=== PATIENT | female | born 1990 | race African-American/Black ===

== ENCOUNTER 2017-06-21 14:45 | Observation (INO) ==
[2017-06-21] MEDS: LACTATED RINGERS 1,000 ML IV SCH ×2 (15:20→22:48)
[2017-06-21] MEDS ORDERED: PROMETHAZINE 25 MG/1 ML VIAL IM PRN (15:32)
[2017-06-21] MEDS ORDERED: ONDANSETRON 4 MG/2 ML VIAL IV PRN (15:32)
[2017-06-21] MEDS ORDERED: MEPERIDINE 25 MG/1 ML VIAL IV PRN (15:33)
[2017-06-21 16:18] LABS: Apearance,Urine CLOUDY (Clear); Bacteria,Urine Occasional /HPF (Few); Bilirubin,Urine Negative (Negative); Blood, Urine Negative (Negative); Glucose,Urine (UA) Negative (Negative); Ketones,Urine Negative (Negative); Nitrite,Urine Negative (Negative); Protein,Urine Negative; Squamous Epithelial Cell,Urine Occasional /HPF (0-10); Urine Color Yellow (Yellow); Urine Specific Gravity 1.004 (1.001-1.035); Urine Urobilinogen < 2.0 EU/DL (0.2-1.0); WBC,Urine 1 /HPF (0-6)
[2017-06-21 16:30] LABS: Basophils % 0.2 % (0.0-0.8); Eosinophils # 0.2 10*3/uL (0.0-0.87); Eosinophils % 1.3 % (0.00-10.9); Hematocrit 33.3 VOL% (35.7-47.0); Hemoglobin 11.5 GM/DL (12.0-16.0); Immature Granulocytes % 0.4 %; Immature Granulocytes Absolute 0.05 #; Lymphocytes # 2.8 10*3/uL (1.4-4.0); Lymphocytes % 22.4 % (21.3-54.2); Mean Corpuscular HGB Conc 34.5 GM/DL (32-36); Mean Corpuscular Hemoglobin 30 PG (27-34); Mean Platelet Volume 10.1 FL (9.6-12.0); Monocytes # 0.5 10*3/uL (0.11-0.8); Monocytes % 4.4 % (1.7-12.7); Neutrophils # 8.9 10*3/uL (1.4-7.4); Neutrophils % 71.3 % (38.7-73.9); Platelet Count 402 T/CUMM (130-400); Red Blood Count 3.87 MC/CUMM (3.8-5.5); Red Cell Distribution Width 13.2 % (9.3-17.3); White Blood Count 12.4 T/CUMM (4-12)
[2017-06-21 17:01] LABS: Alanine Aminotransferase 14 U/L (13-56); Albumin 2.9 G/DL (3.4-5.0); Alkaline Phosphatase 79 U/L (45-117); Aspartate Amino Transferase 12 U/L (0-37); Bilirubin,Total < 0.39 MG/DL (0.2-1.0); Blood Urea Nitrogen 6 MG/DL (7-18); Calcium 8.4 MG/DL (8.5-10.1); Glucose 74 MG/DL (74-106); Potassium 3.8 MMOL/L (3.5-5.1); Sodium 136 MMOL/L (136-145); Total Protein 6.9 G/DL (6.4-8.3)
[2017-06-22] MEDS: LACTATED RINGERS 1,000 ML IV SCH (06:16)
[2017-06-22 07:38] VITALS: BP 108/55
== END 2017-06-22 10:00 | disposition home or self-care (01) ==
LOC: N.OB
PROVIDERS: ADMIT Obstetrics & Gynecology; ATTEND Obstetrics & Gynecology

== ENCOUNTER 2017-08-16 14:47 | Inpatient (IN) ==
[2017-08-16] MEDS ORDERED: ONDANSETRON 4 MG/2 ML VIAL IV PRN ×2 (15:04→20:51)
[2017-08-16] MEDS: LACTATED RINGERS 1,000 ML IV SCH ×2 (15:34→18:20)
[2017-08-16 16:02] LABS: Basophils % 0.2 % (0.0-0.8); Eosinophils # 0.2 10*3/uL (0.0-0.87); Eosinophils % 1.5 % (0.00-10.9); Hematocrit 30.7 VOL% (35.7-47.0); Hemoglobin 10.3 GM/DL (12.0-16.0); Immature Granulocytes % 0.3 %; Immature Granulocytes Absolute 0.04 #; Lymphocytes # 2.6 10*3/uL (1.4-4.0); Lymphocytes % 20.3 % (21.3-54.2); Mean Corpuscular HGB Conc 33.6 GM/DL (32-36); Mean Corpuscular Hemoglobin 29 PG (27-34); Mean Corpuscular Volume 87.5 FL (87-102); Mean Platelet Volume 10.6 FL (9.6-12.0); Monocytes # 0.7 10*3/uL (0.11-0.8); Monocytes % 5.3 % (1.7-12.7); Neutrophils # 9.2 10*3/uL (1.4-7.4); Neutrophils % 72.4 % (38.7-73.9); Platelet Count 362 T/CUMM (130-400); Red Blood Count 3.51 MC/CUMM (3.8-5.5); Red Cell Distribution Width 13.3 % (9.3-17.3); White Blood Count 12.7 T/CUMM (4-12)
[2017-08-16] MEDS ORDERED: FAMOTIDINE 20 MG/2 ML VIAL IV ONE (16:30)
[2017-08-16] MEDS ORDERED: hydrOXYzine HCL 25 MG/1 ML VIAL IM PRN (16:30)
[2017-08-16] MEDS ORDERED: CITRIC ACID/SODIUM CITRATE 30 ML UDCUP PO ONE (16:30)
[2017-08-16] MEDS ORDERED: ePHEDrine 50 MG/ML AMP IV PRN (16:30)
[2017-08-16] MEDS ORDERED: PROMETHAZINE 25 MG/1 ML VIAL IM ONE (16:30)
[2017-08-16] MEDS ORDERED: ONDANSETRON 4 MG/2 ML VIAL IV ONE (16:30)
[2017-08-16] MEDS ORDERED: diphenhydrAMINE 50 MG/1 ML VIAL IV PRN ×2 (16:30)
[2017-08-16] MEDS ORDERED: fentaNYL 2 MCG/ROPIV 0.2% EPID 150 ML EPIDURAL SCH (16:30)
[2017-08-16] MEDS ORDERED: BUPIVACAINE SPINAL 0.75% 2 ML AMP SPINAL ONE (18:10)
[2017-08-16] MEDS ORDERED: BISACODYL 10 MG SUPP RECTAL PRN (20:51)
[2017-08-16] MEDS ORDERED: DOCUSATE SODIUM 100 MG CAPSULE PO PRN (20:51)
[2017-08-16] MEDS ORDERED: oxyCODONE/ACETAMINOPHEN 5-325 MG TABLET PO PRN (20:51)
[2017-08-16] MEDS ORDERED: MAGNESIUM HYDROXIDE SUSP 30 ML UDCUP PO PRN (20:51)
[2017-08-16] MEDS ORDERED: ACETAMINOPHEN 325 MG TABLET PO PRN (20:51)
[2017-08-16] MEDS ORDERED: BENZOCAINE/MENTHOL LOZENGE 18/BOX PO PRN (20:51)
[2017-08-16] MEDS ORDERED: ONDANSETRON 4 MG/2 ML VIAL ONE (21:49)
[2017-08-16] MEDS ORDERED: PROPOFOL 200 MG/20 ML VIAL IV ONE (21:49)
[2017-08-16] MEDS ORDERED: SEVOFLURANE 1 UNIT/15 MINUTE INH ONE (21:49)
[2017-08-16] MEDS ORDERED: fentaNYL 100 MCG/2 ML VIAL ONE (21:49)
[2017-08-16] MEDS ORDERED: SUCCINYLCHOLINE 200 MG/10 ML VIAL ONE (21:49)
[2017-08-17 11:53] VITALS: BP 127/80
== END 2017-08-17 11:03 | disposition home or self-care (01) | DRG 782 ==
LOC: N.LDOUT 14:47 → N.LD 14:50
PROVIDERS: ADMIT Obstetrics & Gynecology; ATTEND Obstetrics & Gynecology

== ENCOUNTER 2017-10-19 14:48 | Observation (INO) ==
[2017-10-19 16:20] LABS: Apearance,Urine CLEAR (Clear); Bilirubin,Urine Negative (Negative); Blood, Urine Negative (Negative); Glucose,Urine (UA) Negative (Negative); Ketones,Urine Negative (Negative); Nitrite,Urine Negative (Negative); Protein,Urine Negative; RBC,Urine <1 /HPF (0-4); Squamous Epithelial Cell,Urine Occasional /HPF (0-10); Urine Color Yellow (Yellow); Urine Specific Gravity 1.003 (1.001-1.035); Urine Urobilinogen < 2.0 EU/DL (0.2-1.0); WBC,Urine <1 /HPF (0-6)
[2017-10-19] MEDS ORDERED: PROMETHAZINE 25 MG/1 ML VIAL IM PRN (19:02)
[2017-10-19] MEDS ORDERED: MEPERIDINE 50 MG/1 ML VIAL IM PRN (19:02)
[2017-10-19] MEDS ORDERED: LACTATED RINGERS 1,000 ML IV SCH (20:30)
[2017-10-19] MEDS: BETAMETH SODIUM PHOS/ACETATE 30 MG/5 ML VIAL IM SCH (21:20)
[2017-10-19 21:21] LABS: Basophils % 0.2 % (0.0-0.8); Eosinophils # 0.2 10*3/uL (0.0-0.87); Eosinophils % 1.5 % (0.00-10.9); Hematocrit 29.6 VOL% (35.7-47.0); Hemoglobin 10.2 GM/DL (12.0-16.0); Immature Granulocytes % 0.8 %; Lymphocytes # 2.3 10*3/uL (1.4-4.0); Lymphocytes % 17.4 % (21.3-54.2); Mean Corpuscular HGB Conc 34.5 GM/DL (32-36); Mean Corpuscular Hemoglobin 30 PG (27-34); Mean Corpuscular Volume 87.6 FL (87-102); Mean Platelet Volume 10.5 FL (9.6-12.0); Monocytes # 0.7 10*3/uL (0.11-0.8); Monocytes % 5.5 % (1.7-12.7); Neutrophils # 9.7 10*3/uL (1.4-7.4); Neutrophils % 74.6 % (38.7-73.9); Platelet Count 377 T/CUMM (130-400); Red Blood Count 3.38 MC/CUMM (3.8-5.5); Red Cell Distribution Width 13.4 % (9.3-17.3)
[2017-10-19 21:40] LABS: Alanine Aminotransferase 12 U/L (13-56); Albumin 2.4 G/DL (3.4-5.0); Alkaline Phosphatase 108 U/L (45-117); Aspartate Amino Transferase 15 U/L (0-37); Bilirubin,Total < 0.39 MG/DL (0.2-1.0); Blood Urea Nitrogen 6 MG/DL (7-18); Calcium 9.4 MG/DL (8.5-10.1); Glucose 82 MG/DL (74-106); Osmolality,Calculated 273.5 MOS/KG (273-304); Sodium 139 MMOL/L (136-145); Total Protein 7.3 G/DL (6.4-8.3)
[2017-10-20] MEDS: BETAMETH SODIUM PHOS/ACETATE 30 MG/5 ML VIAL IM SCH (12:49)
[2017-10-20 18:17] VITALS: BP 118/56
== END 2017-10-20 13:55 | disposition home or self-care (01) ==
LOC: N.LDOUT 14:48 → N.LD 14:48
PROVIDERS: ADMIT Obstetrics & Gynecology; ATTEND Obstetrics & Gynecology

== ENCOUNTER 2017-12-21 04:50 | Inpatient (IN) ==
[2017-12-21] MEDS ORDERED: ONDANSETRON 4 MG/2 ML VIAL IV PRN ×2 (05:03→09:00)
[2017-12-21] MEDS ORDERED: CITRIC ACID/SODIUM CITRATE 30 ML UDCUP PO ONE (05:03)
[2017-12-21] MEDS ORDERED: FAMOTIDINE 20 MG/2 ML VIAL IV ONE (05:03)
[2017-12-21] MEDS ORDERED: LACTATED RINGERS 1,000 ML IV SCH ×2 (05:30→09:00)
[2017-12-21 05:48] LABS: Basophils % 0.2 % (0.0-0.8); Eosinophils # 0.2 10*3/uL (0.0-0.87); Eosinophils % 1.1 % (0.00-10.9); Hematocrit 33.8 VOL% (35.7-47.0); Hemoglobin 11.6 GM/DL (12.0-16.0); Immature Granulocytes % 0.7 %; Lymphocytes # 2.8 10*3/uL (1.4-4.0); Lymphocytes % 19.8 % (21.3-54.2); Mean Corpuscular HGB Conc 34.3 GM/DL (32-36); Mean Corpuscular Hemoglobin 29 PG (27-34); Mean Corpuscular Volume 85.6 FL (87-102); Mean Platelet Volume 11.7 FL (9.6-12.0); Monocytes # 0.6 10*3/uL (0.11-0.8); Monocytes % 4.2 % (1.7-12.7); Neutrophils # 10.4 10*3/uL (1.4-7.4); Platelet Count 340 T/CUMM (130-400); Red Blood Count 3.95 MC/CUMM (3.8-5.5); Red Cell Distribution Width 13.8 % (9.3-17.3); White Blood Count 14.1 T/CUMM (4-12)
[2017-12-21 06:18] LABS: Alanine Aminotransferase 13 U/L (13-56); Albumin 2.3 G/DL (3.4-5.0); Alkaline Phosphatase 237 U/L (45-117); Aspartate Amino Transferase 14 U/L (0-37); Bilirubin,Total < 0.39 MG/DL (0.2-1.0); Blood Urea Nitrogen 2 MG/DL (7-18); Calcium 8.8 MG/DL (8.5-10.1); Glucose 98 MG/DL (74-106); Osmolality,Calculated 272.5 MOS/KG (273-304); Potassium 3.9 MMOL/L (3.5-5.1); Sodium 139 MMOL/L (136-145); Total Protein 7.5 G/DL (6.4-8.3)
[2017-12-21] MEDS ORDERED: OXYTOCIN/LR 20 UNIT/1,000 ML BAG IV ONE ×2 (07:00→09:00)
[2017-12-21] MEDS ORDERED: LACTATED RINGERS 1,000 ML IV ONE ×2 (07:17→14:54)
[2017-12-21] MEDS ORDERED: ACETAMINOPHEN 325 MG TABLET PO PRN (09:00)
[2017-12-21] MEDS ORDERED: RHO(D) IMMUNE GLOBULIN 300 MCG SYRINGE IM ONE (09:00)
[2017-12-21] MEDS ORDERED: SIMETHICONE CHEW 80 MG TABLET PO PRN (09:00)
[2017-12-21] MEDS ORDERED: IBUPROFEN 800 MG TABLET PO PRN (09:00)
[2017-12-21] MEDS ORDERED: MIDAZOLAM 2 MG/2 ML VIAL ONE (09:14)
[2017-12-21] MEDS ORDERED: fentaNYL 100 MCG/2 ML VIAL ONE (09:14)
[2017-12-21] MEDS ORDERED: ROCURONIUM 100 MG/10 ML VIAL IV ONE (09:15)
[2017-12-21] MEDS ORDERED: SEVOFLURANE 1 UNIT/15 MINUTE INH ONE (09:15)
[2017-12-21] MEDS ORDERED: hydrOXYzine HCL 25 MG/1 ML VIAL IM PRN (09:30)
[2017-12-21] MEDS ORDERED: MORPHINE PCA 30 MG/30 ML SYRINGE IV SCH ×2 (09:30→18:03)
[2017-12-21] MEDS ORDERED: NALOXONE 0.4 MG/ML VIAL IV PRN (09:30)
[2017-12-21] MEDS ORDERED: diphenhydrAMINE 50 MG/1 ML VIAL IV PRN (09:30)
[2017-12-21 10:21] LABS: Apearance,Urine CLEAR (Clear); Bilirubin,Urine Negative (Negative); Blood, Urine Negative (Negative); Glucose,Urine (UA) Negative (Negative); Ketones,Urine Negative (Negative); Mucus,Urine Occasional /LPF (Occasional); Nitrite,Urine Negative (Negative); Protein,Urine Negative; RBC,Urine 1 /HPF (0-4); Squamous Epithelial Cell,Urine Occasional /HPF (0-10); Urine Color Yellow (Yellow); Urine Specific Gravity 1.006 (1.001-1.035); Urine Urobilinogen < 2.0 EU/DL (0.2-1.0); WBC,Urine 1 /HPF (0-6)
[2017-12-21] MEDS: KETOROLAC 30 MG/1 ML VIAL IV SCH ×2 (13:56→20:36)
[2017-12-21] MEDS ORDERED: ceFAZolin 1,000 MG in SYRINGE 1 EACH IV SCH (14:00)
[2017-12-21] MEDS ORDERED: SUGAMMADEX 200 MG/2 ML VIAL IV ONE (14:50)
[2017-12-21] MEDS: ceFAZolin 1,000 MG in SYRINGE 1 EACH IV SCH ×2 (15:21→23:54)
[2017-12-21 15:41] LABS: Basophils % 0.1 % (0.0-0.8); Hematocrit 27.8 VOL% (35.7-47.0); Hemoglobin 9.3 GM/DL (12.0-16.0); Immature Granulocytes % 0.6 %; Immature Granulocytes Absolute 0.13 #; Lymphocytes # 2.1 10*3/uL (1.4-4.0); Lymphocytes % 10.2 % (21.3-54.2); Mean Corpuscular HGB Conc 33.5 GM/DL (32-36); Mean Corpuscular Hemoglobin 30 PG (27-34); Mean Corpuscular Volume 89.4 FL (87-102); Mean Platelet Volume 11.6 FL (9.6-12.0); Monocytes # 0.8 10*3/uL (0.11-0.8); Monocytes % 3.9 % (1.7-12.7); Neutrophils # 17.4 10*3/uL (1.4-7.4); Neutrophils % 85.2 % (38.7-73.9); Platelet Count 297 T/CUMM (130-400); Red Blood Count 3.11 MC/CUMM (3.8-5.5); Red Cell Distribution Width 13.9 % (9.3-17.3); White Blood Count 20.4 T/CUMM (4-12)
[2017-12-21 21:53] LABS: Platelet Estimate Normal
[2017-12-22] MEDS: KETOROLAC 30 MG/1 ML VIAL IV SCH ×2 (02:41→10:27)
[2017-12-22] MEDS: DOCUSATE SODIUM 100 MG CAPSULE PO SCH ×3 (02:47→20:02)
[2017-12-22 07:02] LABS: Basophils % 0.2 % (0.0-0.8); Eosinophils # 0.1 10*3/uL (0.0-0.87); Eosinophils % 0.7 % (0.00-10.9); Hematocrit 23.8 VOL% (35.7-47.0); Hemoglobin 8.2 GM/DL (12.0-16.0); Immature Granulocytes % 0.5 %; Immature Granulocytes Absolute 0.07 #; Lymphocytes # 3.3 10*3/uL (1.4-4.0); Lymphocytes % 22.2 % (21.3-54.2); Mean Corpuscular HGB Conc 34.5 GM/DL (32-36); Mean Corpuscular Hemoglobin 30 PG (27-34); Mean Corpuscular Volume 86.2 FL (87-102); Mean Platelet Volume 11.2 FL (9.6-12.0); Monocytes # 0.8 10*3/uL (0.11-0.8); Monocytes % 5.2 % (1.7-12.7); Neutrophils # 10.6 10*3/uL (1.4-7.4); Neutrophils % 71.2 % (38.7-73.9); Platelet Count 263 T/CUMM (130-400); Red Blood Count 2.76 MC/CUMM (3.8-5.5); Red Cell Distribution Width 13.7 % (9.3-17.3); White Blood Count 14.9 T/CUMM (4-12)
[2017-12-22] MEDS: MAGNESIUM HYDROXIDE SUSP 30 ML UDCUP PO PRN ×2 (10:18→20:02)
[2017-12-22] MEDS: MULTIVITAMIN (PRENATAL) TABLET PO SCH (10:18)
[2017-12-22] MEDS: oxyCODONE/ACETAMINOPHEN 5-325 MG TABLET PO PRN ×3 (11:18→21:16)
[2017-12-23] MEDS: oxyCODONE/ACETAMINOPHEN 5-325 MG TABLET PO PRN ×2 (07:50→14:11)
[2017-12-23] MEDS: DOCUSATE SODIUM 100 MG CAPSULE PO SCH (09:09)
[2017-12-23] MEDS: MULTIVITAMIN (PRENATAL) TABLET PO SCH (09:09)
[2017-12-23 10:26] LABS: Basophils % 0.2 % (0.0-0.8); Eosinophils # 0.1 10*3/uL (0.0-0.87); Eosinophils % 1.2 % (0.00-10.9); Hematocrit 23.6 VOL% (35.7-47.0); Hemoglobin 7.9 GM/DL (12.0-16.0); Immature Granulocytes % 0.4 %; Lymphocytes # 2.2 10*3/uL (1.4-4.0); Lymphocytes % 19.6 % (21.3-54.2); Mean Corpuscular HGB Conc 33.5 GM/DL (32-36); Mean Corpuscular Hemoglobin 30 PG (27-34); Mean Corpuscular Volume 88.4 FL (87-102); Mean Platelet Volume 11.4 FL (9.6-12.0); Monocytes # 0.6 10*3/uL (0.11-0.8); Monocytes % 5.2 % (1.7-12.7); Neutrophils # 8.3 10*3/uL (1.4-7.4); Neutrophils % 73.4 % (38.7-73.9); Platelet Count 291 T/CUMM (130-400); Red Blood Count 2.67 MC/CUMM (3.8-5.5); Red Cell Distribution Width 13.8 % (9.3-17.3); White Blood Count 11.3 T/CUMM (4-12)
[2017-12-23 10:27] LABS: Immature Granulocytes Absolute 0.05 #
[2017-12-23 13:03] VITALS: BP 149/98
== END 2017-12-23 15:50 | disposition home or self-care (01) | DRG 766 ==
LOC: N.LDOUT 04:50 → N.LD 04:53 → N.OB 11:35
PROVIDERS: ADMIT Obstetrics & Gynecology; ATTEND Obstetrics & Gynecology
PROC: LDCSECT (ICD-10-PCS; 2017-12-21 07:30)